=== PATIENT | male | born 1940 | race Caucasian/White ===

== ENCOUNTER 2020-06-25 07:40 | Day surgery (SDC) | payer MEDICARE ==
[~2020-06-25] VITALS: Ht 180.3 cm; Wt 108.5 kg
[~2020-06-25 07:40] MED LIST: ATOR20 PO; Vitamin D2000 UNIT PO
--- NOTE | 2020-06-25 08:16 | NUR ---
06/25/20 0816 VINCENT WIGGINS PATIENT TO ROOM, SITUATED ON SURGICAL BED. EYE DROPS STARTED. VSS. ENGAGED IN PRE OP TEACHING.
== END 2020-06-25 09:55 | disposition home or self-care (01) ==
LOC: ORSCSDS 07:40
PROVIDERS: Ophthalmology
PROC: 08RK3JZ Replacement of Left Lens with Synthetic Substitute, Percutaneous Approach (ICD-10-PCS; principal; 2020-06-25 09:00)
DX: H25.12 Age-related nuclear cataract, left eye (principal); I10 Essential (primary) hypertension; E11.9 Type 2 diabetes mellitus without complications; N18.9 Chronic kidney disease, unspecified
CPT/HCPCS: 82947; J2001; J2250; J3010; J3301; J7040; V2632

== ENCOUNTER → 2021-02-05 | Outpatient (CLI) | payer MEDICARE | END | disposition home or self-care (01) | LOC: LAB SHORT 07:59 → LAB 07:59 | DX: D48.5 Neoplasm of uncertain behavior of skin (principal) | CPT/HCPCS: 88304 ==